=== PATIENT | female | born 1990 | race Two or more races ===

== ENCOUNTER 2020-02-25 17:31 | Emergency (ER) | payer OTHER ==
[~2020-02-25] VITALS: Ht 160 cm; Wt 89.1 kg
--- NOTE | 2020-02-25 18:09 | PHYS DOC ---
Past History Past Medical History: No Pertinent History Past Medical History IVF Past Surgical History: No Surgical History General Adult EDM: Chief Complaint: HEADACHE HPI: HPI: Patient is a 29-year-old female who presents with headache, fatigue, nausea since yesterday. Patient states she has been taking Tylenol for the headache. Patient's last menstrual period was December 25. Patient reports she has been on IVF and trying to get . Patient had a positive test in the ER. Patient denies nausea, only reporting headache at this time. Denies any medical history. Rating pain 3-10. Review of Systems: Review of Systems: Constitutional: Denies fever or chills Eyes: Denies change in visual acuity HENT: Denies nasal congestion or sore throat Respiratory: Denies cough or shortness of breath Cardiovascular: Denies chest pain or edema GI: Denies abdominal pain, nausea, vomiting, bloody stools or diarrhea : Denies dysuria Musculoskeletal: Denies back pain or joint pain Integument: Denies rash Neurologic: Reports headache, denies focal weakness or sensory changes Endocrine: Denies polyuria or polydipsia Lymphatic: Denies swollen glands Psychiatric: Denies depression or anxiety Allergies: Allergies: Allergies Coded Allergies Type Severity Reaction Last Updated Verified No Known Drug Allergies 02/25/20 No Physical Exam: PE: Constitutional: Well developed, well nourished, no acute distress, non-toxic appearance. [] HENT: Normocephalic, atraumatic, bilateral external ears normal, oropharynx moist, no oral exudates, nose normal. [] Eyes: PERRLA, EOMI, conjunctiva normal, no discharge. [] Neck: Normal range of motion, no tenderness, supple, no stridor. [] Cardiovascular:Heart rate regular rhythm, no murmur [] Lungs & Thorax: Bilateral breath sounds clear to auscultation [] Abdomen: Bowel sounds normal, soft, no tenderness, no masses, no pulsatile masses. [] Skin: Warm, dry, no erythema, no rash. [] Back: No tenderness, no CVA tenderness. [] Extremities: No tenderness, no cyanosis, no clubbing, ROM intact, no edema. [] Neurologic: Alert and oriented X 3, normal motor function, normal sensory f unction, no focal deficits noted. [] Psychologic: Affect normal, judgement normal, mood normal. [] Current Patient Data: Labs: Laboratory Tests Test 02/25/20 17:58 POC Urine HCG, Qualitative hcg positive (Negative) EKG: EKG: [] Radiology/Procedures: Radiology/Procedures: []OB ultrasound less than 14 weeks to include transabdominal and transvaginal imaging 02/25/2020 CLINICAL HISTORY: First trimester . History of previous miscarriages. TECHNIQUE: Using the distended urinary bladder as a sonographic window, a real- time ultrasound examination of the pelvis was performed. Additionally in an attempt to better evaluate the uterus and adnexa, a transvaginal ultrasound study was performed. Multiple images were obtained. A gestational sac is seen within the endometrial canal of the fundus/body of the uterus. Within this gestational sac a yolk sac and associated embryonic pole are seen. The CRL of the embryonic pole measures 1.44 cm. This corresponds to an estimated gestational age by ultrasound 7 weeks 5 days plus or minus a standard deviation of 5 days. The estimated date of delivery by ultrasound is 10/08/2020. Embryonic cardiac activity is seen with a heart rate of 162 bpm. To the right of the gestational sac a hypoechoic area is seen which measures 1.4 cm in greatest diameter. This likely represents a subchorionic hemorrhage. The uterus is otherwise within normal limits. The right ovary is normal in size. It measures 2.5 x 2.7 x 2.1 cm in size. A 2.1 cm oval-shaped anechoic structure is seen within the right ovary which is within the corpus luteum cyst. The left ovary is enlarged . It measures 5.7 x 4.9 x 3.3 cm in size. Within the left ovary a complex cyst is seen which measures 5.8 cm in greatest diameter. Normal color-flow and pulse Doppler imaging to both ovaries is noted. No free fluid is seen. IMPRESSION: 1. Single living IUP with an estimated gestational age by ultrasound of 7 weeks 5 days plus or minus a standard deviation of 5 days. The estimated date of delivery by ultrasound is 10/08/2020. 2. 5.8 cm complex cyst is seen within the left ovary. Electronically signed by: Miguel Frank MD (02/25/2020 8:02 PM) [id number] Heart Score: Risk Factors: Risk Factors: DM, Current or recent (<one month) smoker, HTN, HLP, family history of CAD, obesity. Risk Scores: Score 0 - 3: 2.5% MACE over next 6 weeks - Discharge Home Score 4 - 6: 20.3% MACE over next 6 weeks - Admit for Clinical Observation Score 7 - 10: 72.7% MACE over next 6 weeks - Early Invasive Strategies Course & Med Decision Making: Course & Med Decision Making Pertinent Labs and Imaging studies reviewed. (See chart for details) []Patient is a 29-year-old female who presents with headache, fatigue, nausea s victor m yesterday. Patient states she has been taking Tylenol for the headache. Patient's last menstrual period was December 25. Patient reports she has been on IVF and trying to get . Patient had a positive test in the ER. Patient denies nausea, only reporting headache at this time. Denies any medical history. Rating pain 3-10. BP was elevated on arrival. Recheck of BP was 139/80. Labs drawn to r/o preeclampsia. Denies previous history of HTN. No increase in creatinine, no increase in LFTs, no protein in her urine. Gave patient's referral for [facility] for follow-up. Patient hemodynamically stable at discharge. Patient will contact Dr Hernadez for follow up in the morning. I also suggested patient to get a bp cuff for at home to check daily. Sonogram shows 1. Single living IUP with an estimated gestational age by ultrasound of 7 weeks 5 days plus or minus a standard deviation of 5 days. The estimated date of delivery by ultrasound is 10/08/2020. 2. 5.8 cm complex cyst is seen within the left ovary. Zain Disclaimer: Zain Disclaimer: This electronic medical record was generated, in whole or in part, using a voice recognition dictation system. Departure Departure: Impression: Primary Impression: Headache Qualified Codes: R51.9 - Headache, unspecified Disposition: 01 DC HOME SELF CARE/HOMELESS Condition: GOOD Referrals: PCP,NO (PCP) EDITH HERNADEZ MD Patient Instructions: General Headache Without Cause, [id number] Additional Instructions: I have attached a obgyn contact for you since you are out of town at this time. Dr. Hernadez is available to see at [facility]. Please call and make an appointment tomorrow morning to be evaluated. Your blood pressure was elevated slightly in the ER. I would get a blood pressure cuff for at home so you can check your blo od pressure daily. You will need to start taking vitamins and avoid NSAIDS. If you have any concerns please return to the ED. EMERGENCY DEPARTMENT GENERAL DISCHARGE INSTRUCTIONS Thank you for coming to [facility] (ED) today and trusting us with you care. We trust that you had a positivie experience in our Emergency Department. If you wish to speak to the department management, you may call the director at [phone]. YOUR FOLLOW UP INSTRUCTIONS ARE FOLLOWS: 1. Do you have a private Doctor? If you do not have a private doctor, please ask for a resource list of physicians or clinics that may be able to assist you with follow up care. 2. The Emergency Physician has interpreted your x-rays. The X-Ray specialist w ill also review them. If there is a change in the findings, you will be notified in 48 hours when at all possible. 3. A lab test or culture has been done, your results will be reviewed and you will be notified if you need a change in treatment. ADDITIONAL INSTRUCTIONS AND INFORMATION: 1. Your care today has been supervised by a physician who is specially trained in emergency care. Many problems require more than one evaluation for a complete diagnosis and treatment. We recommend that you schedule your follow up appointment as recommended to ensure complete treatment of you illness or injury. If you are unable to obtain follow up care and continue to have a problem, or if your condition worsens, we recommend that you return to the ED. 2. We are not able to safely determine your condition over the phone nor are we able to give sound medical advice over the phone. For these safety reasons, if you call for medical advice we will ask you to come to the ED for further evaluation. 3. If you have any questions regarding these discharge instructions please call the ED at [phone]. SAFETY INFORMATION: In the interest of safety, wellness, and injury prevention; we encourage you to wear your sealbelt, if you smoke; quite smoking, and we encourage family to use a protective helmet for bicycling and other sporting events that present an increased risk for head injury. IF YOUR SYMPTOMS WORSEN OR NEW SYMPTOMS DEVELOP, OR YOU HAVE CONCERNS ABOUT YOUR CONDITION; OR IF YOUR CONDITION WORSENS WHILE YOU ARE WAITING FOR YOUR FOLLOW UP APPOINTMENT; EITHER CONTACT YOUR PRIMARY CARE DOCTOR, THE PHYSICIAN WHOSE NAME AND NUMBER YOU WERE GIVEN, OR RETURN TO THE ED IMMEDIATELY. ABDIRAHMAN CROW APRN Feb 25, 2020 18:09
[2020-02-25 18:21] LABS: BASO % 0 % (0-3); EOS % 1 % (0-3); HEMATOCRIT 41.7 % (36.0-47.0); HEMOGLOBIN 14.5 g/dL (12.0-15.5); LYMPH % 34 % (24-48); MEAN CORPUSCULAR HEMOGLOBIN 32 pg (25-35); MEAN CORPUSCULAR HGB CONC 35 g/dL (31-37); MEAN CORPUSCULAR VOLUME 91 fL (79-100); MONO # 0.7 x10^3/uL (0.0-1.1); MONO % 8 % (0-9); NEUT # 4.9 x10^3uL (1.8-7.7); NEUT % 57 % (31-73); PLATELET COUNT 299 x10^3/uL (140-400); RED BLOOD COUNT 4.59 x10^6/uL (3.50-5.40); RED CELL DISTRIBUTION WIDTH 12.7 % (11.5-14.5); WHITE BLOOD COUNT 8.6 x10^3/uL (4.0-11.0)
[2020-02-25 18:22] LABS: CALCIUM 9.1 mg/dL (8.5-10.1); CREATININE 0.5 mg/dL (0.6-1.0); GFR 145.9; POTASSIUM 3.6 mmol/L (3.5-5.1)
[2020-02-25 18:25] LABS: BACTERIA,URINE FEW /HPF (0-FEW); BILIRUBIN,URINE NEG (NEG); CLARITY,URINE CLEAR; COLOR,URINE YELLOW; GLUCOSE,URINE NEG (NEG); NITRITE,URINE NEG (NEG); RBC,URINE OCC /HPF (0-2); UROBILINOGEN,URINE 0.2 mg/dL (0.2 mg/dL); WBC,URINE OCC /HPF (0-4)
[2020-02-25 18:26] LABS: SQUAMOUS EPITHELIAL CELL,UR OCC /LPF
[2020-02-25 18:29] LABS: ALBUMIN 3.5 g/dL (3.4-5.0); ALBUMIN/GLOBULIN RATIO 0.9 (1.0-1.7); MAGNESIUM 2.2 mg/dL (1.8-2.4); TOTAL BILIRUBIN 0.5 mg/dL (0.2-1.0); TOTAL PROTEIN 7.4 g/dL (6.4-8.2)
--- NOTE | 2020-02-25 20:04 | RAD ---
OB ultrasound less than 14 weeks to include transabdominal and transvaginal imaging 02/25/2020 CLINICAL HISTORY: First trimester . History of previous miscarriages. TECHNIQUE: Using the distended urinary bladder as a sonographic window, a real-time ultrasound examin ation of the pelvis was performed. Additionally in an attempt to better evaluate the uterus and adnex a, a transvaginal ultrasound study was performed. Multiple images were obtained. A gestational sac is seen within the endometrial canal of the fundus/body of the uterus. Within this gestational sac a yolk sac and associated embryonic pole are seen. The CRL of the embryonic pole bunny ures 1.44 cm. This corresponds to an estimated gestational age by ultrasound 7 weeks 5 days plus or m inus a standard deviation of 5 days. The estimated date of delivery by ultrasound is 10/08/2020. [place] onic cardiac activity is seen with a heart rate of 162 bpm. To the right of the gestational sac a hyp oechoic area is seen which measures 1.4 cm in greatest diameter. This likely represents a subchorioni c hemorrhage. The uterus is otherwise within normal limits. The right ovary is normal in size. It measures 2.5 x 2.7 x 2.1 cm in size. A 2.1 cm oval-shaped anech oic structure is seen within the right ovary which is within the corpus luteum cyst. The left ovary i s enlarged . It measures 5.7 x 4.9 x 3.3 cm in size. Within the left ovary a complex cyst is seen whi ch measures 5.8 cm in greatest diameter. Normal color-flow and pulse Doppler imaging to both ovaries is noted. No free fluid is seen. IMPRESSION: 1. Single living IUP with an estimated gestational age by ultrasound of 7 weeks 5 days plus or minus a standard deviation of 5 days. The estimated date of delivery by ultrasound is 10/08/2020. 2. 5.8 cm complex cyst is seen within the left ovary. Electronically signed by: Miguel Frank MD (02/25/2020 8:02 PM) [id number]
[2020-02-25 20:30] VITALS: BP 144/81
== END 2020-02-25 20:30 | disposition home or self-care (01) ==
LOC: ER 17:31
DX: O26.891 Other specified pregnancy related conditions, first trimester (principal); R51.9 Headache, unspecified; R53.83 Other fatigue; R11.0 Nausea; Z3A.01 Less than 8 weeks gestation of pregnancy
CPT/HCPCS: 36415; 76801; 76817; 80053; 81001; 81025; 83735; 84550; 85025; 99284